=== PATIENT | female | born 1990 | race Asian ===

== ENCOUNTER 2018-06-28 09:00 | Day surgery (SDC) | payer OTHER ==
[~2018-06-28] VITALS: Ht 152.4 cm; Wt 43.5 kg
[2018-06-28] MEDS ORDERED: CEFAZOLIN SODIUM 1 GM/D5W PM 50 ML IV SCH (09:30)
[2018-06-28] MEDS ORDERED: BUPIVACAINE-MPF 0.25% 30 ML VIAL INJ ONE (11:05)
[2018-06-28] MEDS ORDERED: SEVOFLURANE 250 ML BTL INH ONE (11:40)
[2018-06-28] MEDS ORDERED: DEXAMETHASONE 4 MG/ML VIAL ONE (11:40)
[2018-06-28] MEDS ORDERED: PROPOFOL 200 MG/20 ML VIAL IV ONE (11:40)
[2018-06-28] MEDS ORDERED: KETOROLAC 30 MG/ML VIAL ONE (11:40)
[2018-06-28] MEDS ORDERED: ONDANSETRON 4 MG/2 ML VIAL ONE (11:40)
[2018-06-28] MEDS ORDERED: MIDAZOLAM 2 MG/2 ML VIAL ONE (11:57)
[2018-06-28] MEDS ORDERED: MEPERIDINE 50 MG/ML SYR ONE (11:57)
[2018-06-28] MEDS ORDERED: fentaNYL 0.05 MG/ML VIAL ONE (11:57)
[2018-06-28] MEDS ORDERED: LACTATED RINGERS 1,000 ML IV SCH (12:24)
[2018-06-28] MEDS ORDERED: HYDROmorphone 1 MG/ML AMP IVP PRN ×2 (12:25→12:50)
[2018-06-28] MEDS ORDERED: diphenhydrAMINE 50 MG/ML VIAL IVP PRN (12:25)
[2018-06-28] MEDS ORDERED: ONDANSETRON 4 MG/2 ML VIAL IVP PRN (12:25)
[2018-06-28] MEDS ORDERED: MEPERIDINE 25 MG/ML SYR IVP PRN (12:25)
[2018-06-28] MEDS ORDERED: HYDROcodone/APAP 5/325 MG 1 TAB TAB PO PRN (12:50)
[2018-06-28] MEDS ORDERED: ONDANSETRON 4 MG/2 ML VIAL IV PRN (12:50)
[2018-06-28] MEDS ORDERED: MORPHINE SULFATE 4 MG/ML SYR IV PRN (12:50)
[2018-06-28] MEDS ORDERED: ACETAMINOPHEN 325 MG TAB PO PRN (12:50)
[2018-06-28] MEDS ORDERED: MORPHINE SULFATE 2 MG/ML SYR IVP PRN (12:50)
== END 2018-06-28 13:56 | disposition home or self-care (01) ==
LOC: MMU 09:00 → MDS 09:00
PROVIDERS: ATTEND Surgery
DX: D24.2 Benign neoplasm of left breast (principal); F41.9 Anxiety disorder, unspecified; Z79.899 Other long term (current) drug therapy
CPT/HCPCS: 19120; 71045; 88307; J0690; J1100; J1885; J2175; J2250; J2405; J2704; J3010; J3490; J7120